=== PATIENT | female | born 1945 | race Caucasian/White ===

== ENCOUNTER 2016-05-09 10:04 | Emergency (ER) | payer MEDICARE | END 2016-05-09 12:15 | disposition home or self-care (01) | LOC: D.ER 10:04 | DX: S20.211A Contusion of right front wall of thorax, initial encounter (principal); S70.01XA Contusion of right hip, initial encounter; W22.8XXA Striking against or struck by other objects, initial encounter; Y93.89 Activity, other specified; Y92.512 Supermarket, store or market as the place of occurrence of the external cause ==

== ENCOUNTER 2016-05-16 14:44 | Emergency (ER) | payer MEDICARE | END 2016-05-16 20:16 | disposition home or self-care (01) | LOC: D.ER 14:44 | DX: I10 Essential (primary) hypertension (principal); F41.9 Anxiety disorder, unspecified; R00.1 Bradycardia, unspecified ==